=== PATIENT | male | born 1960 | race Caucasian/White ===

== ENCOUNTER 2024-09-30 10:32 | Outpatient (CLI) | payer MEDICARE ==
[~2024-09-30 10:32] MED LIST: IODIXANOL 320 MG/ML INFUS..BTL 100ML IV ONE
[2024-09-30 10:59] LABS: BASOPHILS # (AUTO) 0.1 X10'3 (0-0.2); BASOPHILS % (AUTO) 1.3 % (0-1); EOSINOPHILS # (AUTO) 0.3 X10'3 (0-0.9); EOSINOPHILS % (AUTO) 3.1 % (0-6); HEMATOCRIT 51.4 % (42.0-52.0); HEMOGLOBIN 17.4 g/dl (14.0-17.9); LYMPHOCYTES # (AUTO) 1.2 X10'3 (1.1-4.8); LYMPHOCYTES % (AUTO) 14.3 % (21-51); MEAN CORPUSCULAR HEMOGLOBIN 31.1 PG (27.0-31.0); MEAN CORPUSCULAR HGB CONC 33.9 g/dL (33.0-36.5); MEAN CORPUSCULAR VOLUME 91.8 FL (78-98); MEAN PLATELET VOLUME 7.4 FL (7.4-10.4); MONOCYTES % (AUTO) 11.7 % (2-12); NEUTROPHILS # (AUTO) 5.8 X10'3 (1.8-7.7); NEUTROPHILS % (AUTO) 69.6 % (42-75); PLATELET COUNT 214 X10'3 (140-440); RED CELL DISTRIBUTION WIDTH 15.3 % (11.5-14.5); WHITE BLOOD COUNT 8.4 X10'3 (4.5-11.0)
[2024-09-30 11:12] LABS: APTT 32 SECONDS (22-32); INR 1.1 INR; PROTHROMBIN TIME 11.4 SECONDS (9.0-12.0)
[2024-09-30 11:25] LABS: ALANINE AMINOTRANSFERASE 36 U/L (12-78); ALBUMIN 3.3 G/DL (3.4-5.0); ALBUMIN/GLOBULIN RATIO 0.7 (1.1-1.5); ALKALINE PHOSPHATASE 96 IU/L (46-116); ANION GAP 13 (8-16); ASPARTATE AMINO TRANSFERASE 33 U/L (10-37); BILIRUBIN,TOTAL 0.7 MG/DL (0.1-1.0); BLOOD UREA NITROGEN 28 MG/DL (7-18); BUN/CREATININE RATIO 20.9 (10.0-20.0); CALCIUM 9.4 MG/DL (8.5-10.1); CHLORIDE 104 MMOL/L (99-107); CREATININE 1.34 MG/DL (0.60-1.10); GLUCOSE 92 MG/DL (70-104); POTASSIUM 4.7 MMOL/L (3.5-5.1); PRO BRAIN NATRIURETIC PEPTIDE 3777 PG/ML (0-125); SODIUM 140 MMOL/L (135-145); eGFR 53 ML/MIN
[2024-09-30] MEDS ORDERED: IODIXANOL 320 MG/ML INFUS..BTL 100ML IV ONE (11:32)
== END 2024-09-30 23:59 | disposition home or self-care (01) ==
LOC: RAD 10:32
PROVIDERS: ATTEND Internal Medicine Cardiovascular Disease
DX: I48.91 Unspecified atrial fibrillation (principal); I35.0 Nonrheumatic aortic (valve) stenosis; J84.10 Pulmonary fibrosis, unspecified; R06.02 Shortness of breath; I65.29 Occlusion and stenosis of unspecified carotid artery; D73.89 Other diseases of spleen; I51.7 Cardiomegaly; M47.815 Spondylosis without myelopathy or radiculopathy, thoracolumbar region
CPT/HCPCS: 36415; 71046; 80053; 83880; 85025; 85610; 85730; 93005; 93880; Q9967